=== PATIENT | male | born 1965 | race Caucasian/White ===

== ENCOUNTER 2024-07-02 18:18 | Emergency (ER) | payer BC ==
[~2024-07-02] VITALS: Ht 182.9 cm; Wt 141.4 kg
[2024-07-02] MEDS ORDERED: SACU1TAB4 PO (19:05)
[2024-07-02] MEDS ORDERED: FLAS1KIT3 (19:05)
[2024-07-02] MEDS ORDERED: FURO40TA4 PO (19:05)
[2024-07-02] MEDS ORDERED: SPIR25TA5 PO (19:05)
[2024-07-02] MEDS ORDERED: ATOR40TA72 PO (19:05)
[2024-07-02] MEDS ORDERED: INSU300I3 (19:05)
[2024-07-02] MEDS ORDERED: NYST1000 PO (19:05)
[2024-07-02] MEDS ORDERED: INSU100C4 SQ (19:05)
[2024-07-02] MEDS ORDERED: BENZ-111 PO (19:05)
[2024-07-02] MEDS ORDERED: CARV25TA2 PO (19:05)
[2024-07-02] MEDS ORDERED: SIME80TA73 (19:05)
[2024-07-02] MEDS ORDERED: METF-438 PO (19:05)
[2024-07-02] MEDS ORDERED: MONT-40 PO (19:05)
[2024-07-02] MEDS ORDERED: AMOX-CLAV (19:05)
[2024-07-02] MEDS ORDERED: EMPA25TA PO (19:05)
[2024-07-02] MEDS: methylPREDNISolone sod succ 125mg/2ml vial IV ONE (19:09)
[2024-07-02] MEDS: furosemide 10 MG/1 ML 10ml inj IV ONE (19:09)
[2024-07-02 19:15] LABS: BASOPHILS % (AUTO) 0.8 % (0-1); EOSINOPHILS # (AUTO) 0.1 X10'3 (0-0.9); EOSINOPHILS % (AUTO) 2.6 % (0-6); HEMATOCRIT 43.5 % (42.0-52.0); HEMOGLOBIN 14.1 g/dl (14.0-17.9); LYMPHOCYTES # (AUTO) 0.9 X10'3 (1.1-4.8); LYMPHOCYTES % (AUTO) 18.7 % (21-51); MEAN CORPUSCULAR HEMOGLOBIN 25.9 PG (27.0-31.0); MEAN CORPUSCULAR HGB CONC 32.4 g/dL (33.0-36.5); MEAN CORPUSCULAR VOLUME 79.9 FL (78-98); MEAN PLATELET VOLUME 7.6 FL (7.4-10.4); MONOCYTES # (AUTO) 0.7 X10'3 (0-0.9); MONOCYTES % (AUTO) 13.6 % (2-12); NEUTROPHILS # (AUTO) 3.1 X10'3 (1.8-7.7); NEUTROPHILS % (AUTO) 64.3 % (42-75); PLATELET COUNT 251 X10'3 (140-440); RED BLOOD COUNT 5.44 X10'6 (4.70-6.10); RED CELL DISTRIBUTION WIDTH 16.5 % (11.5-14.5); WHITE BLOOD COUNT 4.8 X10'3 (4.5-11.0)
[2024-07-02 19:23] LABS: ALANINE AMINOTRANSFERASE 30 U/L (12-78); ALBUMIN/GLOBULIN RATIO 0.7 (1.1-1.5); ALKALINE PHOSPHATASE 75 IU/L (46-116); ANION GAP 9 (8-16); ASPARTATE AMINO TRANSFERASE 21 U/L (10-37); BILIRUBIN,TOTAL 0.5 MG/DL (0.1-1.0); BLOOD UREA NITROGEN 44 MG/DL (7-18); BUN/CREATININE RATIO 34.6 (10.0-20.0); CALCIUM 9.2 MG/DL (8.5-10.1); CHLORIDE 105 MMOL/L (99-107); CREATININE 1.27 MG/DL (0.60-1.10); GLUCOSE 117 MG/DL (70-104); POTASSIUM 4.8 MMOL/L (3.5-5.1); SODIUM 141 MMOL/L (135-145); TOTAL CARBON DIOXIDE 27.5 MMOL/L (24-32); TOTAL PROTEIN 7.1 G/DL (6.4-8.2); eCRCL 69 ML/MIN; eGFR 58 ML/MIN
[2024-07-02 19:30] LABS: PRO BRAIN NATRIURETIC PEPTIDE 1001 PG/ML (0-125)
[2024-07-02 19:35] LABS: APTT 27 SECONDS (22-32); PROTHROMBIN TIME 10.6 SECONDS (9.0-12.0)
[2024-07-02] MEDS: ipratropium/albuterol 3ml nebule NEB STA (20:00)
[2024-07-02 20:03] VITALS: PULSE 41; PULSE 68; RESP 18; O2SAT 97
[2024-07-02 20:11] VITALS: PULSE 66; RESP 16; O2SAT 97
[2024-07-02 20:42] VITALS: BP 119/67; PULSE 62; RESP 13; TEMP 98.3; O2SAT 93
== END 2024-07-02 20:35 | disposition home or self-care (01) ==
LOC: ER 18:19
DX: J44.1 Chronic obstructive pulmonary disease with (acute) exacerbation (principal); I49.9 Cardiac arrhythmia, unspecified; E87.70 Fluid overload, unspecified; E78.00 Pure hypercholesterolemia, unspecified; I11.0 Hypertensive heart disease with heart failure; E11.9 Type 2 diabetes mellitus without complications; I50.9 Heart failure, unspecified; Z79.899 Other long term (current) drug therapy; Z79.84 Long term (current) use of oral hypoglycemic drugs; Z79.4 Long term (current) use of insulin
CPT/HCPCS: 36415; 71045; 80053; 83880; 84484; 85025; 85610; 85730; 93005; 94640; 96374; 96375; 99291; J1940; J2919; 94760; A4615